=== PATIENT | female | born 1970 | race Caucasian/White ===

== ENCOUNTER 2018-07-05 06:14 | Emergency (ER) | payer BC ==
[2018-07-05 06:44] VITALS: BP 159/103
--- NOTE | 2018-07-05 07:16 | EDM.PDOC ---
ED HPI GENERAL MEDICAL PROBLEM - General Chief Complaint: Skin Complaint Stated Complaint: LEFT SIDE OF FACE SWOLLEN AND LIP Time Seen by Provider: 07/05/18 07:03 Source of Information: Reports: Patient, RN Notes Reviewed History Limitations: Reports: No Limitations - History of Present Illness INITIAL COMMENTS - FREE TEXT/NARRATIVE: 48-year-old female presents to the emergency department day complaint of rash she has been dealing with this rash on and off for the last couple weeks does get some resolution with Benadryl she has not been able to identify any triggers reason for presentation emergency department day she did have some facial swelling as well as lip swelling no difficulty breathing Left Knee Pain Score (Numeric/FACES): 5 - Related Data Allergies Allergy/AdvReac Type Severity Reaction Status Date / Time amoxicillin trihydrate Allergy Rash Verified 07/05/18 06:29 [From Augmentin] carisoprodol [From Soma] Allergy Hives Verified 07/05/18 06:29 potassium clavulanate Allergy Rash Verified 07/05/18 06:29 [From Augmentin] Home Meds: Home Meds clonazePAM [Clonazepam] 1 tab PO BEDTIME 12/29/12 [History] Albuterol/Ipratropium [DuoNeb 3.0-0.5 MG/3 ML] 1 dose INH Q4H PRN 10/17/15 [ History] Metaxalone [Skelaxin] 800 mg PO TID PRN 03/23/16 [History] EPINEPHrine [Epipen] 0.3 mg IM ASDIRECTED PRN #2 pen 07/05/18 [Rx] Triamterene/Hydrochlorothiazid [Triamterene-HCTZ 37.5-25 MG] 0.5 tab PO DAILY [History] predniSONE [Prednisone] 20 mg PO DAILY #3 tablet 07/05/18 [Rx] Past Medical History Cardiovascular History: Reports: Arrhythmia, High Cholesterol, Hypertension, Other (See Below) Other Cardiovascular History: AVNRT Respiratory History: Reports: Asthma, Bronchitis, Recurrent Gastrointestinal History: Reports: Chronic Constipation, Colon Polyp, Irritable Bowel Syndrome Other Gastrointestinal History: colitis DENTAL OFFICE MANAGER History: Reports: Dysfunctional Uterine Bleeding, Other DENTAL OFFICE MANAGER History: ablation of uterus Musculoskeletal History: Reports: Arthritis, Fracture, Neck Pain, Chronic Neurological History: Reports: Concussion Other Neuro History: CT normal Psychiatric History: Reports: Anxiety Dermatologic History: Reports: Urticaria - Past Surgical History HEENT Surgical History: Reports: Adenoidectomy, Tonsillectomy Cardiovascular Surgical History: Reports: Cardiac Ablation GI Surgical History: Reports: Appendectomy, Colonoscopy, Polypectomy Female Surgical History: Reports: Endometrial Ablation Neurological Surgical History: Reports: None Musculoskeletal Surgical History: Reports: Arthroscopic Knee, Other (See Below) Other Musculoskeletal Surgeries/Procedures:: left ankle Dermatological Surgical History: Reports: None Social & Family History - Tobacco Use Smoking Status *Q: Never Smoker - Caffeine Use Caffeine Use: Reports: Coffee - Alcohol Use Days Per Week of Alcohol Use: 1 Number of Drinks Per Day: 2 Total Drinks Per Week: 2 - Recreational Drug Use Recreational Drug Use: No ED ROS GENERAL - Review of Systems Review Of Systems: See Below Respiratory: Reports: No Symptoms Cardiovascular: Reports: No Symptoms Skin: Reports: Rash ED EXAM, SKIN/RASH Exam: See Below Exam Limited By: No Limitations General Appearance: Alert, WD/WN, No Apparent Distress Throat/Mouth: Normal Inspection, Normal Lips, Normal Teeth, Normal Gums, Normal Oropharynx, Normal Voice Respiratory/Chest: No Respiratory Distress, Lungs Clear, Normal Breath Sounds, No Accessory Muscle Use Cardiovascular: Regular Rate, Rhythm, No Murmur Skin: Warm, Dry, Rash Course - Vital Signs Last Recorded V/S: Last Vital Signs Temp 96.1 F 07/05/18 06:34 Pulse 106 H 07/05/18 06:42 Resp 19 07/05/18 06:42 BP 159/103 H 07/05/18 06:42 Pulse Ox 96 07/05/18 06:42 Departure - Departure Time of Disposition: 07:15 Disposition: Home, Self-Care 01 Condition: Fair Clinical Impression: Hives - Discharge Information Prescriptions: EPINEPHrine [Epipen] 0.3 mg IM ASDIRECTED PRN #2 pen PRN Reason: Allergies predniSONE [Prednisone] 20 mg PO DAILY #3 tablet Referrals: Nayely Larsen PA [Primary Care Provider] - Additional Instructions: Take full course of prednisone for the next 3 days, use your eye the injector if needed, please call the clinic in the morning for an appointment time with Dr. Engle, call return to the emergency department worsening of symptoms - Assessment/Plan Plan: Assessment Acuity = acute Site and laterality = hives Etiology = unclear etiology Manifestations = none Location of injury = Home Lab values = none Plan Elected treat empirically prednisone 20 mg by mouth daily 3 days, prescription written for epinephrine auto pen, also consultation with registered radiologic technologist is also set up This note was dictated using [employer] voice recognition software please call with any questions on syntax or grammar.
== END 2018-07-05 07:23 | disposition home or self-care (01) ==
LOC: JP.ED 06:14
DX: L50.9 Urticaria, unspecified (principal); E78.00 Pure hypercholesterolemia, unspecified; I10 Essential (primary) hypertension; J45.909 Unspecified asthma, uncomplicated; Z88.1 Allergy status to other antibiotic agents; Z88.8 Allergy status to other drugs, medicaments and biological substances; Z79.899 Other long term (current) drug therapy
CPT/HCPCS: 99282

== ENCOUNTER 2021-01-30 12:44 | Emergency (ER) | payer BC ==
[2021-01-30] MEDS ORDERED: Adenosine 6 MG/2 ML SDV IVPUSH ONE (13:04)
--- NOTE | 2021-01-30 13:08 | EDM.PDOC ---
ED HPI GENERAL MEDICAL PROBLEM - General Chief Complaint: Cardiovascular Problem Stated Complaint: A-FIB Time Seen by Provider: 01/30/21 13:05 Source of Information: Reports: Patient History Limitations: Reports: No Limitations - History of Present Illness INITIAL COMMENTS - FREE TEXT/NARRATIVE: This is a 50-year-old female with history of SVT who presents with concerns of palpitations. At approximately 11:45 AM she had sudden onset of palpitations. Feels similar to her prior episodes of SVT. She took a dose of her metoprolol which did not help her symptoms. She notices some mild shortness of breath and chest discomfort, this is typical when she goes into SVT. She has otherwise been feeling well. Did have her flu shot 2 days ago. - Related Data Allergies Allergy/AdvReac Type Severity Reaction Status Date / Time carisoprodol [From Soma] Allergy Severe Hives Verified 01/30/21 12:54 amoxicillin trihydrate Allergy Intermediate Rash Verified 01/30/21 12:54 [From Augmentin] potassium clavulanate Allergy Intermediate Rash Verified 01/30/21 12:54 [From Augmentin] Home Meds: Home Meds clonazePAM [Clonazepam] 1 tab PO BEDTIME 12/29/12 [History] Albuterol/Ipratropium [DuoNeb 3.0-0.5 MG/3 ML] 1 dose INH Q4H PRN 10/17/15 [History] Metaxalone [Skelaxin] 800 mg PO TID PRN 03/23/16 [History] Past Medical History Cardiovascular History: Reports: Arrhythmia, High Cholesterol, Hypertension, Other (See Below) Other Cardiovascular History: AVNRT Respiratory History: Reports: Asthma, Bronchitis, Recurrent Gastrointestinal History: Reports: Chronic Constipation, Colon Polyp, Irritable Bowel Syndrome Other Gastrointestinal History: colitis 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: Dysfunctional Uterine Bleeding, Other LOAN ADMINISTRATOR History: ablation of uterus Musculoskeletal History: Reports: Arthritis, Fracture, Neck Pain, Chronic Neurological History: Reports: Concussion Other Neuro History: CT normal Psychiatric History: Reports: Anxiety Dermatologic History: Reports: Urticaria - Past Surgical History HEENT Surgical History: Reports: Adenoidectomy, Tonsillectomy Cardiovascular Surgical History: Reports: Cardiac Ablation Other Cardiovascular Surgeries/Procedures: ablation performed 2012 Respiratory Surgical History: Reports: None GI Surgical History: Reports: Appendectomy, Colonoscopy, Polypectomy Female Surgical History: Reports: Endometrial Ablation Neurological Surgical History: Reports: None Musculoskeletal Surgical History: Reports: Arthroscopic Knee, Other (See Below) Other Musculoskeletal Surgeries/Procedures:: left ankle Dermatological Surgical History: Reports: None Social & Family History - Tobacco Use Tobacco Use Status *Q: Never Tobacco User - Caffeine Use Caffeine Use: Reports: Coffee ED ROS GENERAL - Review of Systems Review Of Systems: See Below Constitutional: Reports: No Symptoms HEENT: Reports: No Symptoms Respiratory: Reports: No Symptoms Cardiovascular: Reports: Palpitations Endocrine: Reports: No Symptoms GI/Abdominal: Reports: No Symptoms : Reports: No Symptoms Musculoskeletal: Reports: No Symptoms Skin: Reports: No Symptoms Neurological: Reports: No Symptoms Psychiatric: Reports: No Symptoms Hematologic/Lymphatic: Reports: No Symptoms Immunologic: Reports: No Symptoms ED EXAM, GENERAL - Physical Exam Exam: See Below Exam Limited By: No Limitations General Appearance: Alert, No Apparent Distress Ears: Normal External Exam Nose: Normal Inspection Throat/Mouth: Normal Inspection Head: Atraumatic, Normocephalic Neck: Normal Inspection Respiratory/Chest: Lungs Clear Cardiovascular: No Murmur, Tachycardia GI/Abdominal: Soft, Non-Tender Back Exam: Normal Inspection Extremities: Normal Inspection Neurological: Alert, Oriented Psychiatric: Normal Affect, Normal Mood Skin Exam: Warm, Dry #1 Interpretation Time: 12:52 EKG Interpretation Comments: Narrow complex tachycardia. Rate is 160. Consistent with SVT. Nonspecific T wave inversion in lead III, and no other ST segment or T wave changes negative of ischemia Course - Vital Signs Last Recorded V/S: Last Vital Signs Temp 35.7 C L 01/30/21 13:10 Pulse 99 01/30/21 13:10 Resp 20 01/30/21 13:10 BP 133/75 01/30/21 13:10 Pulse Ox 96 01/30/21 13:10 - Orders/Labs/Meds Labs: Laboratory Tests 01/30/21 01/30/21 Range/Units 13:17 13:17 WBC 16.0 H (4.5-11.0) K/uL RBC 4.89 (3.30-5.50) M/uL Hgb 14.4 (12.0-15.0) g/dL Hct 43.8 (36.0-48.0) % MCV 90 (80-98) fL MCH 29 (27-31) pg MCHC 33 (32-36) % Plt Count 327 (150-400) K/uL Sodium 137 L (140-148) mmol/L Potassium 3.8 (3.6-5.2) mmol/L Chloride 101 (100-108) mmol/L Carbon Dioxide 26 (21-32) mmol/L Anion Gap 13.8 (5.0-14.0) mmol/L BUN 9 (7-18) mg/dL Creatinine 0.8 (0.6-1.0) mg/dL Est Cr Clr Drug Dosing 77.38 mL/min Estimated GFR (MDRD) > 60 (>60) Glucose 176 H (74-106) mg/dL Calcium 8.8 (8.5-10.1) mg/dL Magnesium 1.7 L (1.8-2.4) mg/dL Total Bilirubin 0.3 (0.2-1.0) mg/dL AST 14 L (15-37) U/L ALT 22 (12-78) U/L Alkaline Phosphatase 78 (46-116) U/L Total Protein 6.9 (6.4-8.2) g/dL Albumin 3.5 (3.4-5.0) g/dL Globulin 3.4 (2.3-3.5) g/dL Albumin/Globulin Ratio 1.0 L (1.2-2.2) Meds: Medications Discontinued Medications Generic Name Dose Route Start Last Admin Trade Name Freq PRN Reason Stop Dose Admin Adenosine 6 mg 01/30/21 13:04 Adenosine 6 Mg/2 Ml Sdv IVPUSH 01/30/21 13:05 NOW ONE - Re-Assessments/Exams Free Text/Narrative Re-Assessment/Exam: Is a 50-year-old female presents concerns of palpitations. On evaluation upon arrival she is found to be in narrow complex tachycardia consistent with an SVT. She has some shortness of breath but otherwise appears stable. Blood pressure is preserved. We were preparing to give her adenosine when she spontaneously converted to sinus rhythm. He was monitored in the ED for approximately 45 minutes following this, remains in sinus. Screening labs show slightly low magnesium. Discussed IV supplementation with the patient, her preference to be discharged and get a p.o. supplement at the [facility]. She has a prescription for metoprolol already in place if her symptoms recur. Discharge with return precautions. 01/30/21 14:14 Departure - Departure Time of Disposition: 14:15 Disposition: Home, Self-Care 01 Clinical Impression: Paroxysmal supraventricular tachycardia Instructions: Supraventricular Tachycardia, Adult Referrals: Nayely Larsen PA [Primary Care Provider] - Forms: ED Department Discharge Additional Instructions: Please return to the emergency room if your SVT returns and persists despite use of metoprolol. We recommend you take magnesium supplementation. You may want to consider follow-up with your field care manager if you feel the frequency of these episodes is increasing. Thank you for trusting us to care for you today. Sepsis Event Note (ED) - Evaluation Sepsis Screening Result: No Definite Risk - Focused Exam Vital Signs: Vital Signs Temp Pulse Resp BP Pulse Ox 01/30/21 13:10 35.7 C L 99 20 133/75 96 01/30/21 12:51 35.4 C L 169 H 20 129/107 H 96
[2021-01-30 13:13] VITALS: BP 133/75; PULSE 99
== END 2021-01-30 14:49 | disposition home or self-care (01) ==
LOC: JP.ED 12:44
DX: I47.1 Supraventricular tachycardia (principal); I10 Essential (primary) hypertension; J45.909 Unspecified asthma, uncomplicated; M19.90 Unspecified osteoarthritis, unspecified site; Z88.8 Allergy status to other drugs, medicaments and biological substances; Z88.0 Allergy status to penicillin; Z79.899 Other long term (current) drug therapy
CPT/HCPCS: 36415; 80053; 83735; 85027; 99285-25

== ENCOUNTER 2021-08-07 07:25 | Day surgery (SDC) | payer BC ==
[~2021-08-07 07:25] MED LIST: Bupivacaine 0.5% 50 ML MDV ONE; Lidocaine 1% with EPINEPHrine 1:100,000 50 ML MDV ONE
[2021-08-07] MEDS: Sodium Chloride 0.9% 1,000 ML IV SCH ×2 (08:28→11:28)
[2021-08-07] MEDS ORDERED: Albuterol/Ipratropium 3.0-0.5 MG/3 ML Neb Soln NEB ONE (09:00)
[2021-08-07] MEDS ORDERED: metroNIDAZOLE/Normal Saline 500 MG in Premix Bag 1 BAG IV ONE (09:00)
[2021-08-07] MEDS ORDERED: Famotidine 20 MG/2 ML SDV IV ONE ×2 (09:15)
[2021-08-07] MEDS ORDERED: fentaNYL 100 MCG/2 ML SDV IVPUSH PRN ×3 (09:26)
[2021-08-07] MEDS ORDERED: Zolpidem 5 MG Tab PO PRN (09:26)
[2021-08-07] MEDS ORDERED: Ondansetron 4 MG/2 ML SDV IVPUSH PRN (09:26)
[2021-08-07] MEDS ORDERED: Benzocaine/Cetylpyridinium/Menthol Lozenge MUCMEM PRN (09:26)
[2021-08-07] MEDS ORDERED: hydrOXYzine HCL 100 MG/2 ML SDV IM PRN (09:26)
[2021-08-07] MEDS ORDERED: Acetaminophen/HYDROcodone 325-5 MG Tab PO PRN (09:26)
[2021-08-07] MEDS ORDERED: Docusate Sodium 100 MG Cap PO PRN (09:26)
[2021-08-07] MEDS ORDERED: Glycopyrrolate 0.2 MG/ML 5 ML MDV ONE (09:29)
[2021-08-07] MEDS ORDERED: Dexamethasone 4 MG/ML SDV ONE (09:29)
[2021-08-07] MEDS ORDERED: Propofol 200 MG/20 ML SDV ONE (09:29)
[2021-08-07] MEDS ORDERED: Rocuronium 50 MG/5 ML Vial ONE (09:29)
[2021-08-07] MEDS ORDERED: fentaNYL 250 MCG/5 ML SDV ONE (09:29)
[2021-08-07] MEDS ORDERED: Neostigmine Methylsulfate 1 MG/ML 5 ML Syringe ONE (09:29)
[2021-08-07] MEDS ORDERED: Succinylcholine 200 MG/10 ML MDV ONE (09:29)
[2021-08-07] MEDS ORDERED: Ondansetron 4 MG/2 ML SDV ONE (09:29)
[2021-08-07] MEDS ORDERED: Scopolamine 1.5 MG Transdermal Patch TOP ONE (09:45)
[2021-08-07] MEDS ORDERED: Bupivacaine 0.5% 50 ML MDV INJECT ONE (10:03)
[2021-08-07] MEDS ORDERED: Lidocaine 1% with EPINEPHrine 1:100,000 50 ML MDV INJECT ONE (10:04)
[2021-08-07] MEDS ORDERED: Ketorolac 30 MG/ML SDV ONE (10:11)
[2021-08-07] MEDS ORDERED: fentaNYL 100 MCG/2 ML SDV ONE (10:11)
[2021-08-07] MEDS ORDERED: diphenhydrAMINE 50 MG/ML SDV ONE (10:11)
[2021-08-07] MEDS ORDERED: Sugammadex Sodium 200 MG/2 ML VIAL ONE (10:13)
[2021-08-07] MEDS ORDERED: hydrOXYzine HCL 100 MG/2 ML SDV IM ONE (10:39)
[2021-08-07] MEDS ORDERED: VERIFY SCOP PATCH TOP SCH (11:00)
[2021-08-07 13:16] VITALS: BP 124/72; PULSE 94
== END 2021-08-07 14:39 | disposition home or self-care (01) ==
LOC: JP.SDS 07:25
PROVIDERS: ATTEND Surgery
DX: K80.10 Calculus of gallbladder with chronic cholecystitis without obstruction (principal); I10 Essential (primary) hypertension; E78.5 Hyperlipidemia, unspecified; E55.9 Vitamin D deficiency, unspecified; E66.9 Obesity, unspecified; I47.1 Supraventricular tachycardia; I48.91 Unspecified atrial fibrillation; Z88.6 Allergy status to analgesic agent; Z88.0 Allergy status to penicillin; Z88.8 Allergy status to other drugs, medicaments and biological substances; Z79.899 Other long term (current) drug therapy; Z68.37 Body mass index [BMI] 37.0-37.9, adult
CPT/HCPCS: 36415; 47562; 80053; 85027; 88304; A9270; J0171; J0330; J0690; J1100; J1200; J1885; J2405; J2704; J2710; J2795; J3010; J3410; J3490; J7030; J7620

== ENCOUNTER 2023-01-02 10:05 | Emergency (ER) | payer BC ==
[2023-01-02 11:22] LABS: BASOPHILS ABSOLUTE AUTO 0.06 K/uL (0.00-0.10); BASOPHILS PERCENT AUTO 0.6 % (0.1-1.3); EOSINOPHILS ABSOLUTE AUTO 0.14 K/uL (0.00-0.40); EOSINOPHILS PERCENT AUTO 1.5 % (0.0-5.4); HEMATOCRIT 44.1 % (34.3-46.0); HEMOGLOBIN 14.7 g/dL (11.2-15.5); IMMATURE GRAN ABSOLUTE AUTO 0.03 K/uL (0.00-0.23); IMMATURE GRAN PERCENT AUTO 0.3 % (0.0-0.7); LYMPHOCYTES PERCENT AUTO 23.5 % (11.4-47.7); MEAN CORPUSCULAR HEMOGLOBIN 29.6 pg (31.6-35.5); MEAN CORPUSCULAR HGB CONC 33.3 g/dL (31.6-35.5); MEAN CORPUSCULAR VOLUME 88.7 fL (81.4-99.0); MONOCYTES ABSOLUTE AUTO 0.72 K/uL (0.20-0.90); MONOCYTES PERCENT AUTO 7.7 % (3.3-12.6); NEUTROPHILS ABSOLUTE AUTO 6.23 K/uL (1.0-7.6); NEUTROPHILS PERCENT AUTO 66.4 % (40.0-78.1); PLATELET COUNT,PLT 303 K/uL (130-375); RED BLOOD CELL COUNT 4.97 M/uL (3.77-5.24); WHITE BLOOD CELL COUNT,WBC 9.4 K/uL (3.2-11.0)
[2023-01-02 11:46] LABS: ANION GAP 9.3 mmol/L (5.0-14.0); BLOOD UREA NITROGEN,BUN 7 mg/dL (7-18); CALCIUM 8.6 mg/dL (8.5-10.1); CARBON DIOXIDE,CO2 27 mmol/L (21-32); CHLORIDE,CL 104 mmol/L (100-108); CREATININE 0.7 mg/dL (0.6-1.0); EST CRCL DRUG DOSING (CG) 86.52 mL/min; ESTIMATED GFR 105 mL/min (>60); GLUCOSE RANDOM 111 mg/dL (74-106); POTASSIUM,K 3.8 mmol/L (3.6-5.2); SODIUM,NA 140 mmol/L (140-148)
[2023-01-02 11:47] LABS: TROPONIN I HIGH SENSITIVITY < 4.0 pg/mL (<=60.3)
[2023-01-02 12:24] VITALS: BP 143/79; PULSE 72
== END 2023-01-02 13:27 | disposition home or self-care (01) ==
LOC: JP.ED 10:05
DX: M79.10 Myalgia, unspecified site (principal); R11.2 Nausea with vomiting, unspecified; I10 Essential (primary) hypertension; J45.909 Unspecified asthma, uncomplicated; M19.90 Unspecified osteoarthritis, unspecified site; E66.9 Obesity, unspecified; Z68.41 Body mass index [BMI] 40.0-44.9, adult; Z79.899 Other long term (current) drug therapy; Z88.8 Allergy status to other drugs, medicaments and biological substances; Z88.0 Allergy status to penicillin; Z79.82 Long term (current) use of aspirin
CPT/HCPCS: 36415; 71045; 71045-26; 80048; 84484; 85025; 85379; 99285

== ENCOUNTER 2025-01-06 09:19 | Emergency (ER) | payer BC ==
[2025-01-06 10:08] VITALS: BP 148/66; PULSE 75
[2025-01-06 10:34] LABS: BASE EXCESS VENOUS 3.2 mm/L; BASOPHILS ABSOLUTE AUTO 0.08 K/uL (0.00-0.10); BASOPHILS PERCENT AUTO 0.6 % (0.1-1.3); BICARBONATE,VENOUS 28.6 mmol/L; EOSINOPHILS ABSOLUTE AUTO 0.23 K/uL (0.00-0.40); EOSINOPHILS PERCENT AUTO 1.8 % (0.0-5.4); IMMATURE GRAN ABSOLUTE AUTO 0.06 K/uL (0.00-0.23); IMMATURE GRAN PERCENT AUTO 0.5 % (0.0-0.7); LYMPHOCYTES ABSOLUTE AUTO 2.77 K/uL (0.8-3.3); LYMPHOCYTES PERCENT AUTO 22.1 % (11.4-47.7); MONOCYTES ABSOLUTE AUTO 0.74 K/uL (0.20-0.90); MONOCYTES PERCENT AUTO 5.9 % (3.3-12.6); NEUTROPHILS ABSOLUTE AUTO 8.64 K/uL (1.0-7.6); NEUTROPHILS PERCENT AUTO 69.1 % (40.0-78.1); O2 SATURATION VENOUS 40.0; OXYHEMOGLOBIN 38.2 %; PCO2 VENOUS 48.3 mm/Hg; PH,VENOUS 7.391 (7.350-7.450); PLATELET COUNT,PLT 308 K/uL (130-375); RED BLOOD CELL COUNT 5.11 M/uL (3.77-5.24); TOTAL HEMOGLOBIN 16.1 g/dL (12.0-16.0); WHITE BLOOD CELL COUNT,WBC 12.5 K/uL (3.2-11.0)
[2025-01-06 10:36] LABS: PO2 VENOUS 24.1 mm/Hg
[2025-01-06 10:52] LABS: INR 1.0
[2025-01-06 11:01] LABS: A/G RATIO 1.0 (1.2-2.2); ALANINE AMINOTRANSFERASE,ALT 24 U/L (12-78); ASPARTATE AMNIOTRANSFERASE,AST 12 U/L (15-37); BILIRUBIN TOTAL 0.6 mg/dL (0.2-1.0); BLOOD UREA NITROGEN,BUN 10 mg/dL (7-18); CARBON DIOXIDE,CO2 31 mmol/L (21-32); CHLORIDE,CL 103 mmol/L (100-108); CREATININE 0.7 mg/dL (0.6-1.0); EST CRCL DRUG DOSING (CG) 88.01 mL/min; ESTIMATED GFR 104 mL/min (>60); GLUCOSE RANDOM 135 mg/dL (74-106); POTASSIUM,K 5.0 mmol/L (3.6-5.2); PRO B-TYPE NATRIUR PEPT,BNPPRO 33 pg/mL (5-125); PROTEIN TOTAL,TP 7.4 g/dL (6.4-8.2); SODIUM,NA 138 mmol/L (140-148)
== END 2025-01-06 12:03 | disposition home or self-care (01) ==
LOC: JP.ED 09:19
DX: I49.3 Ventricular premature depolarization (principal); I10 Essential (primary) hypertension; E66.9 Obesity, unspecified; M19.90 Unspecified osteoarthritis, unspecified site; Z79.899 Other long term (current) drug therapy; Z88.8 Allergy status to other drugs, medicaments and biological substances; Z88.1 Allergy status to other antibiotic agents; Z86.16 Personal history of COVID-19; Z90.49 Acquired absence of other specified parts of digestive tract; Z68.41 Body mass index [BMI] 40.0-44.9, adult
CPT/HCPCS: 36415; 80053; 80307; 82803; 83605; 83735; 83880; 84484; 85025; 85379; 85610; 93005; 99285; A9270; 93010; 99284

== ENCOUNTER 2025-01-18 14:56 | Emergency (ER) | payer BC ==
[2025-01-18 15:39] LABS: BASOPHILS ABSOLUTE AUTO 0.11 K/uL (0.00-0.10); BASOPHILS PERCENT AUTO 1.1 % (0.1-1.3); EOSINOPHILS ABSOLUTE AUTO 0.25 K/uL (0.00-0.40); EOSINOPHILS PERCENT AUTO 2.4 % (0.0-5.4); IMMATURE GRAN ABSOLUTE AUTO 0.03 K/uL (0.00-0.23); IMMATURE GRAN PERCENT AUTO 0.3 % (0.0-0.7); LYMPHOCYTES ABSOLUTE AUTO 2.83 K/uL (0.8-3.3); LYMPHOCYTES PERCENT AUTO 27.5 % (11.4-47.7); MONOCYTES ABSOLUTE AUTO 0.83 K/uL (0.20-0.90); MONOCYTES PERCENT AUTO 8.1 % (3.3-12.6); NEUTROPHILS ABSOLUTE AUTO 6.24 K/uL (1.0-7.6); NEUTROPHILS PERCENT AUTO 60.6 % (40.0-78.1); PLATELET COUNT,PLT 320 K/uL (130-375); RED BLOOD CELL COUNT 5.04 M/uL (3.77-5.24); WHITE BLOOD CELL COUNT,WBC 10.3 K/uL (3.2-11.0)
[2025-01-18 16:03] LABS: A/G RATIO 1.0 (1.2-2.2); ALANINE AMINOTRANSFERASE,ALT 40 U/L (12-78); ASPARTATE AMNIOTRANSFERASE,AST 25 U/L (15-37); BILIRUBIN TOTAL 0.4 mg/dL (0.2-1.0); BLOOD UREA NITROGEN,BUN 2 mg/dL (7-18); CARBON DIOXIDE,CO2 27 mmol/L (21-32); CHLORIDE,CL 105 mmol/L (100-108); CREATININE 0.8 mg/dL (0.6-1.0); ESTIMATED GFR 89 mL/min (>60); GLUCOSE RANDOM 121 mg/dL (74-106); POTASSIUM,K 3.5 mmol/L (3.6-5.2); PROTEIN TOTAL,TP 7.5 g/dL (6.4-8.2); SODIUM,NA 141 mmol/L (140-148); TROPONIN I HIGH SENSITIVITY 5.5 pg/mL (<=60.3)
[2025-01-18 17:42] LABS: APPEARANCE,URINE SLIGHTLY CLOUDY (CLEAR); GLUCOSE,URINE NEGATIVE (NEGATIVE); OCCULT BLOOD,URINE NEGATIVE (NEGATIVE)
[2025-01-18 17:56] LABS: SQUAMOUS EPITHELIAL CELLS,UR FEW /HPF; UROTHELIAL CELLS,URINE NOT SEEN /HPF
[2025-01-18] MEDS: Iopamidol 612 MG/ML 100 ML Bottle IV ONE (18:25)
[2025-01-18] MEDS: Sodium Chloride 0.9% 10 ML Syringe FLUSH ONE (18:39)
[2025-01-18 20:00] VITALS: BP 116/62; PULSE 65
== END 2025-01-18 19:30 | disposition home or self-care (01) ==
LOC: JP.ED 14:56
DX: K30 Functional dyspepsia (principal); E86.0 Dehydration; Z88.8 Allergy status to other drugs, medicaments and biological substances; Z79.899 Other long term (current) drug therapy; Z88.0 Allergy status to penicillin
CPT/HCPCS: 36415; 71045; 74177; 80053; 81001; 83690; 84484; 85025; 93005; 93010; 96360; 96361; 99284; 99285; J7030; Q9967

== ENCOUNTER 2025-01-19 07:29 | Day surgery (SDC) | payer BC ==
[2025-01-19] MEDS ORDERED: fentaNYL 50 MCG/ML SDV ONE (08:00)
[2025-01-19] MEDS ORDERED: Propofol 200 MG/20 ML SDV ONE (08:00)
[2025-01-19] MEDS: Lactated Ringers 1,000 ML IV SCH (08:27)
[2025-01-19 10:46] VITALS: BP 141/82; PULSE 61
== END 2025-01-19 10:45 | disposition home or self-care (01) ==
LOC: JP.SDS 07:29
PROVIDERS: ATTEND Family Medicine
DX: K29.50 Unspecified chronic gastritis without bleeding (principal); K29.80 Duodenitis without bleeding; E66.9 Obesity, unspecified; I10 Essential (primary) hypertension; Z88.8 Allergy status to other drugs, medicaments and biological substances; Z88.1 Allergy status to other antibiotic agents; Z68.30 Body mass index [BMI] 30.0-30.9, adult; Z79.82 Long term (current) use of aspirin; Z79.899 Other long term (current) drug therapy
CPT/HCPCS: 00731; 43239; J2704; J3010; J7120